=== PATIENT | female | born 1950 | race Caucasian/White ===

== ENCOUNTER → 2019-12-24 | Outpatient (CLI) | payer MEDICARE, OTHER ==
[~2019-12-24] MED LIST: ATOR20 PO; Aspirin EC81 MG PO; LEVO-T25 MCG; METO50ER PO; OMEPRAZOLE MAGN20 MG PO; Vitamin D2000 UNIT PO
== END | disposition home or self-care (01) ==
LOC: LAB EV 15:25 → LAB SHORT 15:25
DX: J35.8 Other chronic diseases of tonsils and adenoids (principal)
CPT/HCPCS: 87081; 87147

== ENCOUNTER 2022-06-18 08:02 | Day surgery (SDC) | payer MEDICARE, OTHER ==
[~2022-06-18] VITALS: Ht 160 cm; Wt 70.9 kg
[~2022-06-18 08:02] MED LIST changes: +IRON18 MG PO; -LEVO-T25 MCG; +LEVSOD25 PO; +MELO7.5 PO; +MULVITA PO; +OMEP20ER PO; -OMEPRAZOLE MAGN20 MG PO; +Vitamin B-12100 MCG PO; +ZINC15 PO
--- NOTE | 2022-06-18 19:30 | NUR ---
SHIFT SUMMARY PATIENT NEW ADMIT TO UNIT POST OP R TKA WITH DR MORROW. SPINAL WORE OFF IN A COUPLE HOURS. ALERT AND ORIENTED. SBA TO AMBULATE IN ROOM WITH FWW AND GAIT BELT. VOIDING WELL. TOLERATING REGULAR DIET AND LIQUIDS. PAIN CONTROLLED WITH NON-NARCOTIC PAIN MEDS. HIGH BP, HOSP CONSULTED AND ORDERED PRN HYDRALAZINE. METOPROLOL DUE AT 2100. PLAN TO DISCHARGE HOME IN AM AFTER CLEARING THERAPY.
--- NOTE | 2022-06-19 04:01 | NUR ---
POD1 FOR A RIGHT TKA. CIRCULATION AND SENSATION REMAINS INTACT. INCISION DRESSED WITH AQUACEL AND SUMI WRAP, THIS REMAINS C/D/I. VSS, HTN NOTED, PT REMAINS ASYMPTOMATIC. MEDICATED WITH SCHEDULED MEDS, NO PRNS NEEDED. THE PT SLEPT ON AND OFF T/O THE NIGHT. SHE WAS ABLE TO AMBULATE TO THE BATHROOM MULTIPLE TIMES WITH MINIMAL ASSISTANCE TO VOID. DENIES PASSING FLATTUS. TOLLERATING PO INTAKE, BUT REPORTED MILD NAUSEA AT THE BEGINNING OF SHIFT. MEDICATED PER EMAR. PAIN MANAGED WITH OXY AND SCHEDUELED MEDICATIONS. CRYO HAS REMAINED IN PLACE T/O THE NIGHT. PLAN FOR PT TO WORK WITH THERAPY THIS AM BEFORE D/C HOME.
[2022-06-19 05:50] LABS: BASOPHILS ABSOLUTE AUTO 0.02 K/mm3 (0.00-0.23); BASOPHILS PERCENT AUTO 0 % (0-2); EOSINOPHILS ABSOLUTE AUTO 0.06 K/mm3 (0.00-0.68); EOSINOPHILS PERCENT AUTO 0 % (0-6); Hematocrit 42.6 % (33.0-51.0); Hemoglobin 14.5 g/dL (11.5-16.0); IMMATURE GRAN ABSOLUTE AUTO 0.04 K/mm3 (0.00-0.10); IMMATURE GRAN PERCENT AUTO 0 % (0-1); LYMPHOCYTES ABSOLUTE AUTO 1.98 K/mm3 (0.84-5.20); LYMPHOCYTES PERCENT AUTO 14 % (21-46); MONOCYTES ABSOLUTE AUTO 0.67 K/mm3 (0.16-1.47); MONOCYTES PERCENT AUTO 5 % (4-13); Mean Corpuscular HGB 32.4 pg (26.0-34.0); Mean Corpuscular Volume 95 fL (80-100); Mean Platelet Volume 9.7 fL (9.1-12.4); NEUTROPHILS ABSOLUTE AUTO 11.42 K/mm3 (1.96-9.15); NEUTROPHILS PERCENT AUTO 81 % (41-73); Platelet Count 334 K/mm3 (150-400); RDW Coefficient Variation 11.5 % (11.7-14.2); RDW Standard Deviation 39.9 fL (35.1-46.3); Red Blood Cell Count 4.48 M/mm3 (3.80-5.20); White Blood Cell Count 14.19 K/mm3 (4.00-11.30)
[2022-06-19 06:22] LABS: Bun/Creatinine Ratio 16.7 (12.0-20.0); Calcium, Blood 9.8 mg/dL (8.5-10.1); Creatinine, Blood 0.6 mg/dL (0.40-1.00)
[2022-06-19] MEDS ORDERED: Percocet 5-3251 EACH PO (09:11)
--- NOTE | 2022-06-19 11:28 | NUR ---
DISCHARGE:PACKET PRINTED AND PT EDUCATED. PT GIVEN SCRIPTS, IV DC'D WNL, TIP INTACT. PT GIVEN EXTRA AQUACEL DRESSINGS. LEFT UNIT VIA WHEELCHAIR WITH LORRIE MORGAN AT ABOUT 1100
== END 2022-06-19 11:00 | disposition home or self-care (01) ==
LOC: ORSCMMR 08:02 → SURS 08:02 → ORSCMMR 08:03 → ORD 10:00 → ORSCMMR 10:00 → ORD 11:15 → SURS 13:33 → ORSCMMR 06-19 11:00 → SURS 06-19 11:00
PROVIDERS: Orthopaedic Surgery
PROC: 0SRC0JA Replacement of Right Knee Joint with Synthetic Substitute, Uncemented, Open Approach (ICD-10-PCS; principal; 2022-06-18 10:00)
PROC: 8E0Y0CZ Robotic Assisted Procedure of Lower Extremity, Open Approach (ICD-10-PCS; principal; 2022-06-18 10:00)
DX: M17.11 Unilateral primary osteoarthritis, right knee (principal); I10 Essential (primary) hypertension; K21.9 Gastro-esophageal reflux disease without esophagitis; E03.9 Hypothyroidism, unspecified; E78.5 Hyperlipidemia, unspecified; Z79.899 Other long term (current) drug therapy; Z79.82 Long term (current) use of aspirin
CPT/HCPCS: 27447; 20985; S2900; 36415; 73560-RT; 80048; 85025; 97110; 97116; 97162; A9270; C1776; J0171; J0360; J0690; J0735; J1100; J1885; J2250; J2370; J2405; J2704; J2765; J2795; J3010; J7120

== ENCOUNTER → 2022-10-07 | Outpatient (CLI) | payer MEDICARE, OTHER ==
[~2022-10-07] MED LIST changes: +Percocet 5-3251 EACH PO
== END ==
LOC: LAB 08:50 → LAB SHORT 08:50
DX: R30.0 Dysuria (principal)
CPT/HCPCS: 87077; 87086; 87186